=== PATIENT | male | born 1995 ===

== ENCOUNTER 2020-08-20 04:19 | Emergency (ER) | payer SELFPAY ==
[2020-08-20] MEDS ORDERED: Lactated Ringers 1,000 ML IV ONE (04:30)
[2020-08-20] MEDS ORDERED: Ondansetron 4 MG/2 ML SDV IVPUSH ONE (04:30)
[2020-08-20] MEDS ORDERED: Morphine 4 MG/ML Syringe IVPUSH ONE (04:30)
--- NOTE | 2020-08-20 04:31 | EDM.PDOC ---
<Neymar Daniel - Last Filed: 08/20/20 06:33> ED HPI GENERAL MEDICAL PROBLEM - General Stated Complaint: PAIN IN LEFT TESTICLE Time Seen by Provider: 08/20/20 04:20 Source of Information: Reports: Patient History Limitations: Reports: No Limitations - History of Present Illness INITIAL COMMENTS - FREE TEXT/NARRATIVE: 25-year-old male with no past medical history presents with left testicular pain that started 5 hours ago. Pain is sharp, rated 10/10, constant, localized to the left scrotum, nonradiating, no alleviating or exacerbating factors. He denies penile discharge, dysuria, fever, chills, nausea, vomiting, trauma. ROS: A 10-point review of systems, other than pertinent positives and negatives as stated per HPI, is otherwise negative Past medical history: No additional pertinent history Past Surgical history: No additional pertinent history Social history: No additional pertinent history Family history: No additional pertinent history PHYSICAL EXAM General: AOx4, GCS = 15, moderate distress HEENT: dry mucous membrane Neck: supple, no meningismus, no Kernig or Brudzinski Cardiac: S1S2 RRR Respiratory: CTAB, no crackles or rales, no wheezing Abdomen: Soft, nontender, no rebound or guarding, nondistended, no pulsatile mass. Back: nontender : Left scrotum tender to palpation, high riding testicle. Musculoskeletal: NVI distally, no deformity Neuro: No focal deficits, CN 2 - 12 WNL. - Related Data Allergies Allergy/AdvReac Type Severity Reaction Status Date / Time No Known Allergies Allergy Verified 08/20/20 05:31 Home Meds: Home Meds Doxycycline [Vibramycin] 100 mg PO BID #14 tab 08/20/20 [Rx] ED ROS GENERAL - Review of Systems Review Of Systems: See Below (see dictation) ED EXAM, GENERAL - Physical Exam Exam: See Below (see dictation) Course - Re-Assessments/Exams Free Text/Narrative Re-Assessment/Exam: 08/20/20 06:33 I reexamined the patient, his pain improved after Toradol morphine to 4/10. Departure - Departure Disposition: Home, Self-Care 01 Clinical Impression: Acute epididymitis - Discharge Information Prescriptions: Doxycycline [Vibramycin] 100 mg PO BID #14 tab Instructions: Chlamydia, Male, Epididymitis, Preventing Sexually Transmitted Infections, Adult, Gonorrhea Referrals: PCP,None [Primary Care Provider] - Forms: ED Department Discharge Additional Instructions: Mr. Pablo you were evaluated today on an emergent basis. At this time your ultrasound did not reveal any torsion. It however did reveal inflammation of the epididymis. We did provide you with antibiotics to cover for this inflammation. In your age group the most common cause of this is a sexually transmitted infection. I do recommend that you continue the antibiotic course of doxycycline twice a day for the next 7 days. It is important that you re frain from sexual intercourse for the next 2 weeks. There is no need to retest for sexually transmitted infection. If your test is positive for gonorrhea or chlamydia you will receive a call. If it is negative you will not receive a call. It is important to use condoms or some type of barrier protection during sexual intercourse to prevent sexually transmitted infection including HIV. For symptomatic support I do recommend that you use what is called scrotal support. This can be achieved with just simple briefs as underwear instead of boxer briefs or boxers. If you have any new or worsening symptoms you are welcome to return to the emergency department. Otherwise please follow-up with your primary care physician in [address] [facility] [address] [place] [id number] [address] The patient is informed of any results of their evaluation and diagnostic workup and all questions are answered. They are given discharge instructions and return precautions. The patient is stable for discharge. The patient states they understand and agree with the plan and that they will return if their symptoms get worse or if they have any new concerns. The following information is given to patients seen in the emergency department who are being discharged to home. This information is to outline your options for follow-up care. We provide all patients seen in our emergency department with a follow-up referral. The need for follow-up, as well as the timing and circumstances, are variable depending upon the specifics of your emergency department visit. If you don't have a primary care physician on staff, we will provide you with a referral. We always advise you to contact your personal physician following an emergency department visit to inform them of the circumstance of the visit and for follow-up with them and/or the need for any referrals to a consulting specialist. The emergency department will also refer you to a specialist when appropriate. This referral assures that you have the opportunity for follow-up care with a specialist. All of these measure are taken in an effort to provide you with optimal care, which includes your follow-up. Under all circumstances we always encourage you to contact your private physician who remains a resource for coordinating your care. When calling for follow-up care, please make the office aware that this follow-up is from your recent emergency room visit. If for any reason you are refused follow-up, please contact the [facility] Emergency Department at and asked to speak to the emergency department charge nurse. <Obey Wilson - Last Filed: 08/20/20 14:28> ED HPI GENERAL MEDICAL PROBLEM - History of Present Illness INITIAL COMMENTS - FREE TEXT/NARRATIVE: Patient was signed out to me by Dr. Daniel pending ultrasound and reevaluate at 7 AM I did reevaluate the patient and patient reported improvement in his pain and was now laying comfortably on the stretcher in no acute distress. Labs reviewed which did reveal leukocytosis of 20.29 with otherwise normal indices and no evidence of left shift. CMP reveals hyperglycemia at 115, elevated bilirubin at 1.3 and AST of 39 otherwise unremarkable. UDS is positive for opiates and marijuana. Urinalysis was negative. The radiological images were viewed by myself along with reading the report from the radiologist. Scrotal ultrasound with duplex does not reveal any evidence of torsion. There is mild thickening and hyperemia of the inferior left epididymal body and head likely epididymitis. After imaging I did discuss results with the patient. At this time I did discuss that the most common cause in his age group would likely be sexually transmitted infection. I did discuss that we did send off for these however I had like to treat him prophylactically. He was amenable to this plan. I provided the patient with ceftriaxone 500 mg IM and gave him his first dose of doxycycline. His doxycycline was sent to the pharmacy. He is instructed to return to the emergency department for any new or worsening symptoms. He was amenable to this plan and had no further questions DISPOSITION: The patient was discharged home in stable condition. The patient will follow up with primary care physician in 3 to 5 days CONDITION: Fair PROCEDURES: None FINAL IMPRESSION(S)/DIAGNOSES: 1. Acute left epididymitis Obey Wilson M.D. Course - Vital Signs Last Recorded V/S: Last Vital Signs Temp 37.6 C 08/20/20 08:18 Pulse 96 08/20/20 08:18 Resp 18 08/20/20 08:18 BP 126/76 08/20/20 08:18 Pulse Ox 98 08/20/20 06:09 - Orders/Labs/Meds Orders: Active Orders 24 hr Category Date Time Status Scrotum and Contents [US] Stat Exams 08/20/20 05:03 Taken CHLAMYDIA AND GONORRHEA BY TMA Stat Lab 08/20/20 06:45 Received Labs: Laboratory Tests 08/20/20 08/20/20 08/20/20 Range/Units 04:37 04:37 06:45 WBC 20.29 H (4.0-11.0) K/uL RBC 4.88 (4.50-5.90) M/uL Hgb 15.3 (13.0-17.0) g/dL Hct 42.9 (38.0-50.0) % MCV 87.9 (80.0-98.0) fL MCH 31.4 (27.0-32.0) pg MCHC 35.7 (31.0-37.0) g/dL RDW Std Deviation 41.4 (28.0-62.0) fl RDW Coeff of Devin 13 (11.0-15.0) % Plt Count 299 (150-400) K/uL MPV 9.40 (7.40-12.00) fL Neut % (Auto) 78.7 (48.0-80.0) % Lymph % (Auto) 13.6 L (16.0-40.0) % Chester % (Auto) 6.4 (0.0-15.0) % Eos % (Auto) 1.0 (0.0-7.0) % Baso % (Auto) 0.3 (0.0-1.5) % Neut # (Auto) 16.0 H (1.4-5.7) K/uL Lymph # (Auto) 2.8 H (0.6-2.4) K/uL Chester # (Auto) 1.3 H (0.0-0.8) K/uL Eos # (Auto) 0.2 (0.0-0.7) K/uL Baso # (Auto) 0.1 (0.0-0.1) K/uL Nucleated RBC % 0.0 /100WBC Nucleated RBCs # 0 K/uL Sodium 136 (136-148) mmol/L Potassium 4.5 (3.5-5.1) mmol/L Chloride 101 (98-107) mmol/L Carbon Dioxide 25.1 (21.0-32.0) mmol/L BUN 13 (7.0-18.0) mg/dL Creatinine 1.1 (0.8-1.3) mg/dL Est Cr Clr Drug Dosing TNP Estimated GFR (MDRD) > 60.0 ml/min Glucose 115 H (74-106) mg/dL Calcium 9.9 (8.5-10.1) mg/dL Total Bilirubin 1.3 H (0.2-1.0) mg/dL AST 39 H (15-37) IU/L ALT 33 (14-63) IU/L Alkaline Phosphatase 72 (46-116) U/L Total Protein 8.1 (6.4-8.2) g/dL Albumin 4.2 (3.4-5.0) g/dL Globulin 3.9 (2.6-4.0) g/dL Albumin/Globulin Ratio 1.1 (0.9-1.6) Urine Color YELLOW Urine Appearance CLEAR Urine pH 7.0 (5.0-8.0) Ur Specific [place] 1.010 (1.001-1.035) Urine Protein NEGATIVE (NEGATIVE) mg/dL Urine Glucose (UA) NEGATIVE (NEGATIVE) mg/dL Urine Ketones NEGATIVE (NEGATIVE) mg/dL Urine Occult Blood NEGATIVE (NEGATIVE) Urine Nitrite NEGATIVE (NEGATIVE) Urine Bilirubin NEGATIVE (NEGATIVE) Urine Urobilinogen 1.0 (<2.0) EU/dL Ur Leukocyte Esterase NEGATIVE (NEGATIVE) Urine Opiates Screen (NEGATIVE) Ur Oxycodone Screen (NEGATIVE) Urine Methadone Screen (NEGATIVE) Ur Barbiturates Screen (NEGATIVE) Ur Phencyclidine Scrn (NEGATIVE) Ur Amphetamine Screen (NEGATIVE) U Methamphetamines Scrn (NEGATIVE) U Benzodiazepines Scrn (NEGATIVE) U Cocaine Metab Screen (NEGATIVE) U Marijuana (THC) Screen (NEGATIVE) 08/20/20 Range/Units 06:45 WBC (4.0-11.0) K/uL RBC (4.50-5.90) M/uL Hgb (13.0-17.0) g/dL Hct (38.0-50.0) % MCV (80.0-98.0) fL MCH (27.0-32.0) pg MCHC (31.0-37.0) g/dL RDW Std Deviation (28.0-62.0) fl RDW Coeff of Devin (11.0-15.0) % Plt Count (150-400) K/uL MPV (7.40-12.00) fL Neut % (Auto) (48.0-80.0) % Lymph % (Auto) (16.0-40.0) % Chester % (Auto) (0.0-15.0) % Eos % (Auto) (0.0-7.0) % Baso % (Auto) (0.0-1.5) % Neut # (Auto) (1.4-5.7) K/uL Lymph # (Auto) (0.6-2.4) K/uL Chester # (Auto) (0.0-0.8) K/uL Eos # (Auto) (0.0-0.7) K/uL Baso # (Auto) (0.0-0.1) K/uL Nucleated RBC % /100WBC Nucleated RBCs # K/uL Sodium (136-148) mmol/L Potassium (3.5-5.1) mmol/L Chloride (98-107) mmol/L Carbon Dioxide (21.0-32.0) mmol/L BUN (7.0-18.0) mg/dL Creatinine (0.8-1.3) mg/dL Est Cr Clr Drug Dosing Estimated GFR (MDRD) ml/min Glucose (74-106) mg/dL Calcium (8.5-10.1) mg/dL Total Bilirubin (0.2-1.0) mg/dL AST (15-37) IU/L ALT (14-63) IU/L Alkaline Phosphatase (46-116) U/L Total Protein (6.4-8.2) g/dL Albumin (3.4-5.0) g/dL Globulin (2.6-4.0) g/dL Albumin/Globulin Ratio (0.9-1.6) Urine Color Urine Appearance Urine pH (5.0-8.0) Ur Specific [place] (1.001-1.035) Urine Protein (NEGATIVE) mg/dL Urine Glucose (UA) (NEGATIVE) mg/dL Urine Ketones (NEGATIVE) mg/dL Urine Occult Blood (NEGATIVE) Urine Nitrite (NEGATIVE) Urine Bilirubin (NEGATIVE) Urine Urobilinogen (<2.0) EU/dL Ur Leukocyte Esterase (NEGATIVE) Urine Opiates Screen POSITIVE (NEGATIVE) Ur Oxycodone Screen NEGATIVE (NEGATIVE) Urine Methadone Screen NEGATIVE (NEGATIVE) Ur Barbiturates Screen NEGATIVE (NEGATIVE) Ur Phencyclidine Scrn NEGATIVE (NEGATIVE) Ur Amphetamine Screen NEGATIVE (NEGATIVE) U Methamphetamines Scrn NEGATIVE (NEGATIVE) U Benzodiazepines Scrn NEGATIVE (NEGATIVE) U Cocaine Metab Screen NEGATIVE (NEGATIVE) U Marijuana (THC) Screen POSITIVE (NEGATIVE) Meds: Medications Discontinued Medications Generic Name Dose Route Start Last Admin Trade Name Freq PRN Reason Stop Dose Admin Doxycycline Hyclate 100 mg 08/20/20 07:19 08/20/20 08:02 Doxycycline 100 Mg Cap PO 08/20/20 07:20 100 mg ONETIME ONE Administration Lactated Ringer's 1,000 mls @ 999 mls/hr 08/20/20 04:30 08/20/20 04:42 Ringers, Lactated IV 08/20/20 05:30 999 mls/hr .BOLUS ONE Administration Ceftriaxone Sodium 500 mg/ 1 mls @ 1 mls/sec 08/20/20 07:18 08/20/20 08:03 Lidocaine HCl IM 08/20/20 07:19 1 mls/sec ONETIME ONE Administration Ketorolac Tromethamine 30 mg 08/20/20 05:25 08/20/20 05:33 Ketorolac 30 Mg/Ml Sdv IVPUSH 08/20/20 05:26 30 mg ONETIME ONE Administration Morphine Sulfate 4 mg 08/20/20 04:30 08/20/20 04:41 Morphine 4 Mg/Ml Syringe IVPUSH 08/20/20 04:31 4 mg ONETIME ONE Administration Ondansetron HCl 4 mg 08/20/20 04:30 08/20/20 04:41 Ondansetron 4 Mg/2 Ml Sdv IVPUSH 08/20/20 04:31 4 mg ONETIME ONE Administration Departure - Departure Time of Disposition: 07:20 Condition: Fair - Discharge Information *PRESCRIPTION DRUG MONITORING PROGRAM REVIEWED*: No *COPY OF PRESCRIPTION DRUG MONITORING REPORT IN PATIENT RODNEY: No Sepsis Event Note (ED) - Focused Exam Vital Signs: Vital Signs Temp Pulse Resp BP Pulse Ox 08/20/20 08:18 37.6 C 96 18 126/76 08/20/20 06:09 93 15 121/67 98 08/20/20 04:44 36.6 C 72 20 131/66 100
[2020-08-20 04:59] LABS: BLOOD UREA NITROGEN,BUN 13 mg/dL (7.0-18.0); CARBON DIOXIDE,CO2 25.1 mmol/L (21.0-32.0); CHLORIDE,CL 101 mmol/L (98-107); GLUCOSE RANDOM 115 mg/dL (74-106); POTASSIUM,K 4.5 mmol/L (3.5-5.1); SODIUM,NA 136 mmol/L (136-148)
[2020-08-20] MEDS ORDERED: Ketorolac 30 MG/ML SDV IVPUSH ONE (05:25)
--- NOTE | 2020-08-20 06:35 | US ---
Indication: Acute left testicle Pain Technique: Ultrasound of the scrotum and contents. Sonographic rivero-scale images were obtained with spectral and color Doppler waveform and spectral waveform analysis of the testicles. Comparison: None available. Findings: The testicles are normal in size and echotexture. No masses. No suspicious calcifications. Normal arterial and venous color Doppler blood flow and spectral waveforms are present in both testicles. Epididymis: There is demonstration of mild thickening and hyperemia of the inferior left epididymal body and head. Other: There is a small left-sided hydrocele. No sign of varicocele. Scrotal wall is normal. Impression: Mild thickening and hyperemia of the inferior left epididymal body and head commensurate with likely epididymitis. No evidence of torsion. Dictated by Devonte Howell MD @ 08/20/2020 6:33:[address] Devonte Howell @ Aug 20 2020 6:33AM
[2020-08-20] MEDS ORDERED: cefTRIAXone 500 MG in Lidocaine 1% 1 ML IM ONE (07:18)
[2020-08-20] MEDS ORDERED: Doxycycline 100 MG Cap PO ONE (07:19)
--- NOTE | 2020-08-21 11:19 | US ---
EXAM DATE: 08/20/20 PATIENT'S AGE: 25 Patient: CORINA SALAS Facility: [facility] . Site : 1997 Study: US-Testicle -08/20/2020 5:43:43 AM Ordering Physician: Fredy Blackmon Final Report: Indication: Acute left testicle Pain Technique: Ultrasound of the scrotum and contents. Sonographic rivero-scale images were obtained with spectral and color Doppler waveform and spectral waveform analysis of the testicles. Comparison: None available. Findings: The testicles are normal in size and echotexture. No masses. No suspicious calcifications. Normal arterial and venous color Doppler blood flow and spectral waveforms are present in both testicles. Epididymis: There is demonstration of mild thickening and hyperemia of the inferior left epididymal body and head. Other: There is a small left-sided hydrocele. No sign of varicocele. Scrotal wall is normal. Impression: Mild thickening and hyperemia of the inferior left epididymal body and head commensurate with likely epididymitis. No evidence of torsion. Dictated by Devonte Howell MD @ 08/20/2020 6:33:37 AM Signed by: Devonte Howell MD @08/20/2020 6:33:37 AM (Electronic Signature) Report Signed by Proxy. SHAY
[2020-08-21 13:07] LABS: C.TRACHOMATIS BY TMA Negative (Negative); N.GONORRHOEAE BY TMA Negative (Negative)
== END 2020-08-20 08:30 | disposition home or self-care (01) ==
LOC: MW.ED 04:19
DX: N45.1 Epididymitis (principal)
CPT/HCPCS: 36415; 76870; 80053; 80305; 81003; 85025; 87491; 87591; 93976; 96372; 96374; 96375; 99284; A9270; J0696; J1885; J2270; J2405; J7120

== ENCOUNTER 2022-08-03 16:10 | Emergency (ER) | payer SELFPAY ==
[2022-08-03] MEDS ORDERED: Ampicillin/Sulbactam Na 3 GM in Sodium Chloride 0.9% 100 ML IV ONE (17:43)
[2022-08-03] MEDS ORDERED: Sodium Chloride 0.9% 1,000 ML IV ONE (17:43)
[2022-08-03 17:57] LABS: BASOPHILS ABSOLUTE AUTO 0.1 K/uL (0.0-0.1); BASOPHILS PERCENT AUTO 1.2 % (0.0-1.5); EOSINOPHILS ABSOLUTE AUTO 0.4 K/uL (0.0-0.7); EOSINOPHILS PERCENT AUTO 4.6 % (0.0-7.0); HEMATOCRIT 43.5 % (38.0-50.0); HEMOGLOBIN 15.3 g/dL (13.0-17.0); LYMPHOCYTES ABSOLUTE AUTO 2.7 K/uL (0.6-2.4); LYMPHOCYTES PERCENT AUTO 28.2 % (16.0-40.0); MEAN CORPUSCULAR HEMOGLOBIN 30.7 pg (27.0-32.0); MEAN CORPUSCULAR HGB CONC 35.2 g/dL (31.0-37.0); MEAN CORPUSCULAR VOLUME 87.3 fL (80.0-98.0); MONOCYTES ABSOLUTE AUTO 0.8 K/uL (0.0-0.8); MONOCYTES PERCENT AUTO 7.9 % (0.0-15.0); NEUTROPHILS ABSOLUTE AUTO 5.5 K/uL (1.4-5.7); NEUTROPHILS PERCENT AUTO 58.1 % (48.0-80.0); NRBC ABSOLUTE 0 K/uL; PLATELET COUNT,PLT 271 K/uL (150-400); RED BLOOD CELL COUNT 4.98 M/uL (4.50-5.90); WHITE BLOOD CELL COUNT,WBC 9.53 K/uL (4.0-11.0)
[2022-08-03 18:28] LABS: ALBUMIN 3.9 g/dL (3.4-5.0); CARBON DIOXIDE,CO2 29.5 mmol/L (21.0-32.0); CREATININE 1.1 mg/dL (0.8-1.3); EST CRCL DRUG DOSING (CG) 116.02 mL/min; POTASSIUM,K 4.2 mmol/L (3.5-5.1); PROTEIN TOTAL,TP 7.8 g/dL (6.4-8.2)
[2022-08-03] MEDS ORDERED: Iopamidol 755 MG/ML 500 ML Multipack Bottle IVPUSH ONE (19:37)
[2022-08-03] MEDS ORDERED: predniSONE 20 MG Tab PO ONE (21:05)
== END 2022-08-03 21:17 | disposition home or self-care (01) ==
LOC: MW.ED 16:10
DX: K04.7 Periapical abscess without sinus (principal)
CPT/HCPCS: 36415; 70488; 80053; 85025; 96365; 99284; A9270; J0295; J3490; J7030; Q9967; 99283